=== PATIENT | female | born 1950 | race Caucasian/White ===

== ENCOUNTER 2019-01-16 09:55 | Day surgery (SDC) | payer OTHER, MEDICARE ==
[~2019-01-16] VITALS: Ht 167.6 cm; Wt 95.2 kg
[~2019-01-16 09:55] MED LIST: Aspir 8181 MG; DILT120; DILT180ER PO; Glucosamine Ch1 EAC4 PO; LOSA50; LOSA50 PO; TURMERIC500 M2 PO; XIIDRA1 EACH BOTHEYES
--- NOTE | 2019-01-16 10:38 | NUR ---
History, Chart, Medications and Allergies reviewed before start of procedure. Patient confirms NPO status and agrees with scheduled surgery. Patient States Post-Procedure ride home has been arranged with her .
[2019-01-16 10:44] LABS: Hematocrit 43.9 % (33.0-51.0); Hemoglobin 14.6 g/dL (11.5-16.0); Mean Corpuscular HGB 31.1 pg (26.0-34.0); Mean Corpuscular HGB Conc 33.3 g/dL (31.5-36.5); Mean Corpuscular Volume 93 fL (80-100); Mean Platelet Volume 10.2 fL (9.1-12.4); Platelet Count 199 K/mm3 (150-400); RDW Coefficient Variation 12.6 % (11.7-14.2); RDW Standard Deviation 43.1 fL (35.1-46.3); White Blood Cell Count 4.75 K/mm3 (4.00-11.30)
--- NOTE | 2019-01-16 16:20 | NUR ---
INTO STEP VIA [facility]. S/P HERNIA REPAIR. PT A&OX3. REPORTS 4/10 ABDOMINAL/INCISIONAL PAIN. INSICION X 4 WITH DERMA [place]. NO NOTED BLEEDING OR HEMATOMA. DIET TOLERATED INITIATED. WILL MEDICATED FOR PAIN PER MD ORDER PRN-SEE EMAR.
--- NOTE | 2019-01-16 17:18 | NUR ---
Patient up to Ambulate independently. Gait steady.INCISIONS X 3 REMAIN CLEAR. Discharge instructions reviewed with patient. Patient verbalizes understanding. Copy given to patient to take home. Discharged via wheelchair to private car for ride home.
--- NOTE | 2019-01-19 07:20 | NUR ---
01/19/19 0720 Myriam Jo VERIFICATIONS: EDIT CHART.
== END 2019-01-16 17:23 | disposition home or self-care (01) ==
LOC: ORSCMMR 09:55 → ORD 13:30 → ORSCMMR 17:23
PROVIDERS: Surgery
PROC: 0YU64JZ Supplement Left Inguinal Region with Synthetic Substitute, Percutaneous Endoscopic Approach (ICD-10-PCS; principal; 2019-01-16 13:30)
PROC: 8E0W4CZ Robotic Assisted Procedure of Trunk Region, Percutaneous Endoscopic Approach (ICD-10-PCS; principal; 2019-01-16 13:30)
PROC: 0YU74JZ Supplement Right Femoral Region with Synthetic Substitute, Percutaneous Endoscopic Approach (ICD-10-PCS; principal; 2019-01-16 13:30)
DX: K40.90 Unilateral inguinal hernia, without obstruction or gangrene, not specified as recurrent (principal); K41.90 Unilateral femoral hernia, without obstruction or gangrene, not specified as recurrent; K66.0 Peritoneal adhesions (postprocedural) (postinfection); I10 Essential (primary) hypertension; Z87.891 Personal history of nicotine dependence; E66.9 Obesity, unspecified; Z68.34 Body mass index [BMI] 34.0-34.9, adult; Z79.899 Other long term (current) drug therapy
CPT/HCPCS: 49650; 49659; S2900; 85027; C1781; J0690; J1100; J1885; J2250; J2405; J2710; J2765; J3010; J7030; J7120

== ENCOUNTER → 2020-10-28 | Outpatient (CLI) | payer MEDICARE, OTHER | END | disposition home or self-care (01) | LOC: LAB 11:38 → LAB SHORT 11:38 | DX: B34.9 Viral infection, unspecified (principal); Z20.828 Contact with and (suspected) exposure to other viral communicable diseases | CPT/HCPCS: U0003 ==

== ENCOUNTER 2023-09-16 13:10 | Day surgery (SDC) | payer MEDICARE, BC ==
[~2023-09-16] VITALS: Ht 167.6 cm; Wt 98.2 kg
[2023-09-16] MEDS ORDERED: ASPI81CH PO (13:58)
[2023-09-16 15:31] VITALS: BP 112/74
== END 2023-09-16 15:35 | disposition home or self-care (01) ==
LOC: ORSCSDS 13:10
PROVIDERS: Specialist
PROC: 0DJD8ZZ Inspection of Lower Intestinal Tract, Via Natural or Artificial Opening Endoscopic (ICD-10-PCS; principal; 2023-09-16 14:30)
DX: Z12.11 Encounter for screening for malignant neoplasm of colon (principal); Z86.010 Personal history of colon polyps; K64.8 Other hemorrhoids; F41.9 Anxiety disorder, unspecified; I10 Essential (primary) hypertension; E78.5 Hyperlipidemia, unspecified; E66.9 Obesity, unspecified; G47.33 Obstructive sleep apnea (adult) (pediatric); Z68.35 Body mass index [BMI] 35.0-35.9, adult; Z79.899 Other long term (current) drug therapy
CPT/HCPCS: J2704; J7120

== ENCOUNTER → 2023-10-10 | Outpatient (CLI) | payer MEDICARE, BC ==
[~2023-10-10] MED LIST changes: +ASPI81CH PO
== END ==
LOC: PLD 14:37 → LAB SHORT 14:37
DX: D48.5 Neoplasm of uncertain behavior of skin (principal)
CPT/HCPCS: 88305